=== PATIENT | male | born 1950 | race Two or more races ===

== ENCOUNTER 2017-06-24 07:27 | Day surgery (SDC) | payer MEDICARE, OTHER | END 2017-06-24 11:30 | disposition home or self-care (01) | LOC: DS 07:27 | PROVIDERS: ATTEND Surgery | DX: K29.50 Unspecified chronic gastritis without bleeding (principal); B96.81 Helicobacter pylori [H. pylori] as the cause of diseases classified elsewhere; K44.9 Diaphragmatic hernia without obstruction or gangrene; K62.4 Stenosis of anus and rectum; K64.8 Other hemorrhoids; K21.9 Gastro-esophageal reflux disease without esophagitis; I10 Essential (primary) hypertension; E78.5 Hyperlipidemia, unspecified; F41.9 Anxiety disorder, unspecified; Z98.890 Other specified postprocedural states | CPT/HCPCS: 43239; 45378; 88305 ×2; 88313; 88342; J3490 ×2 ==